=== PATIENT | female | born 1960 | race Caucasian/White ===

== ENCOUNTER 2018-10-23 02:12 | Observation (INO) | payer OTHER, MEDICAID, SELFPAY ==
[2018-10-23] VITALS (9 sets, daily range): BP systolic 101–123; BP diastolic 60–72; PULSE 77–96; RESP 14–18; TEMP 36.9–37.3; O2SAT 92–95; BMI 20.7
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
[2018-10-23 04:27] LABS: Add Manual Diff / Slide Review NO; Basophils Absolute Auto 0 /uL (0-100); Basophils Percent Auto 0.5 % (0-2); Eosinophils Absolute Auto 0 /uL (0-450); Hematocrit 36.2 % (36-46); Hemoglobin 11.9 g/dL (12.0-16.0); Lymphocytes Absolute Auto 2800 /uL (1100-4500); Lymphocytes Percent Auto 28.2 % (25-40); Mean Corpuscular HGB Conc 32.8 % (30-36); Mean Corpuscular Volume 94.5 fL (80-100); Monocytes Absolute Auto 1200 /uL (0-900); Monocytes Percent Auto 11.9 % (3-14); Neutrophils Absolute Auto 5900 /uL (1500-7000); Neutrophils Percent Auto 59.4 % (50-75); Platelet Count 369 X10^3/uL (150-400); Red Blood Cell Count 3.83 X10^6/uL (4.0-5.2); Red Cell Distribution Width 14.1 % (11.6-14.8); White Blood Cell Count 9.9 X10^3/uL (4.5-11.0)
[2018-10-23 04:50] LABS: Blood Urea Nitrogen 15 mg/dL (7-17); Calcium 10.5 mg/dL (8.4-10.2); Carbon Dioxide 28 mmol/L (22-32); Chloride 105 mmol/L (98-107); Estimated Glomerular Filt Rate 56.7 mL/min (>60); Glucose 99 mg/dL (70-100); HEMOLYSIS 28 (0-50); Potassium 3.2 mmol/L (3.4-5.1); Sodium 142 mmol/L (137-145)
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
[2018-10-23 05:08] LABS: Procalcitonin < 0.05 ng/mL (<0.5)
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
[2018-10-23] MEDS: POTASSIUM CHLORIDE 20 MEQ TAB 40 MEQ PO (06:02)
[2018-10-23] MEDS: OXYCODONE/ACETAMINOPHEN 5/325 TABLET 0.5 TAB PO (06:02)
--- NOTE | 2018-10-23 09:06 | PC.NURSE ---
Nasal swabs obtained per orders. Pt tolerated well.
[2018-10-23] MEDS: ALBUTEROL/IPRATROPIUM 3 ML AMPUL INH (09:18)
[2018-10-23] MEDS: NICOTINE 14 PATCH 14 MG TOP (09:23)
[2018-10-23] MEDS: TOPIRAMATE 25 MG TABLET 50 MG PO (09:23)
[2018-10-23] MEDS: ENOXAPARIN 40 MG/0.4 ML SYRINGE SUBCUT (09:24)
[2018-10-23] MEDS: CLOPIDOGREL 75 MG TABLET PO (09:33)
[2018-10-23] MEDS: ASPIRIN EC 81 MG TABLET PO (09:33)
[2018-10-23 10:15] LABS: Adenovirus Not Detected (Not Detect); Bordetella pertussis Not Detected (Not Detect); Chlamydophila pneumoniae Not Detected (Not Detect); Coronavirus 229E Not Detected (Not Detect); Coronavirus HKU1 Not Detected (Not Detect); Coronavirus NL 63 Not Detected (Not Detect); Coronavirus OC43 Not Detected (Not Detect); Human Metapneumovirus Not Detected (Not Detect); Human Rhinovirus/Enterovirus Not Detected (Not Detect); Influenza A Not Detected (Not Detect); Influenza B Not Detected (Not Detect); Mycoplasma pneumoniae Not Detected (Not Detect); Parainfluenza Virus 1 Not Detected (Not Detect); Parainfluenza Virus 2 Not Detected (Not Detect); Parainfluenza Virus 3 Not Detected (Not Detect); Parainfluenza Virus 4 Not Detected (Not Detect); Respiratory Syncytial Virus Not Detected (Not Detect)
--- NOTE | 2018-10-23 10:54 | PC.NURSE ---
Addendum entered by Мария Pichardo R.N. 10/23/18 13:24: RESP - has napped until lunch, ate then ret to l side to doze, occassional dry, non productive cough, declines RT tmt. Original Note: AM NOTE - awakened for breakfast, pt incont urine, brief changed, pericare performed, has defined red rash on r hip area, dry w/o drainage, bs dim w/expir wheezes, RT in tmt this am, ra 92%, asking for sleeping medication I just want to sleep, discussed medications and timing, repositioned for comfort on l side to nap.
--- NOTE | 2018-10-23 11:20 | CM.DANOTE ---
Addendum entered by YAJAIRA Padilla 10/24/18 08:55: ADD: UNIQUE called Mc ([phone]) Marketing Representative of the [facility] that helps provide additional support to pts in the community and coordination of care and made referral and Mc will be working to determine if pt qualifies and will initiate the Program if indicated to help reduce pt's risk of readmit. YAJAIRA Padilla Addendum entered by YAJAIRA Padilla 10/23/18 16:00: ADD: Return call from [facility] stating they can review pt for likely acceptance. SW faxed clinicals, F2F, MD orders and to send d/c summary when available. BF Addendum entered by YAJAIRA Padilla 10/23/18 15:35: ADD: Per MD, pt may not even have UTI but has gotten dose of oral meds that will help in case she is starting to get UTI and is medically stable to d/c home today with HH and signed F2F. UNIQUE called [facility] whom pt had previously, and they confirmed pt was open to service about a month and a half but had multiple cancellations and not answering the door for scheduled appointments and therefore could not accept pt back. SW called [facility] and made referral and due to pt's Coordinated Care she would need to confirm they have an opening to accept pt with Coordinated Care (limited medicaid openings) and will call SW back. BF Original Note: Patient is a 58 year old female who was admitted today 10/23/18 for UTI, poss pneumonia. Pt has [employer] and RODNEY for insurance and her PCP is Dr. Ferreira. EMR was reviewed. Per , waiting for cultures back and pt may not have pneumonia. PT/OT ordered and pending. SW met bedside with pt and explained role and updated whiteboard and pt confirms that she lives alone in an apartment in [place] and is w/c bound at baseline and not Independent with ADL's. Pt seems to be alert and oriented x3. Pt denies DPOA and declined pwk at this time but discussed 2 adult sons, Ramesh lives in [place] and is supportive and her other son lives in [place] but is currently addicted to methamphetamines. SW discussed the importance of DPOA and that it can be someone who lives out of state or a friend. Pt states that since her CVA in June she was at [facility] for a week and then went to [facility] for 3 weeks before returning home with [facility]. Pt states that she is not currently open with [facility] and does not feel HH needed at d/c. Pt does not drive and is not currently set up with Medicaid transport as pt states she cannot leave her dog home alone even for follow up appointments at this time, but SW discussed her supportive neighbor or friend support in the future just as those people are currently helping with her dog while she is admitted to the hospital. Pt states her [facility] CM is Debbie Light who she feels is very helpful and has regular contact with. Pt states she had a CG for 3 years but when she had her CVA and needed Inpt Rehab her CG had to find another client. Pt's recent CG she had for a month but then he had to quit to care for his own young kids. Pt states its been a month since she's not had a caregiver which is why she has not been adequately meeting her hygiene and care needs but that with Debbie Light she has 2 potential caregivers to interview this week to hopefully get hired and set up. Pt states that her friend transported her to [facility] early this morning and pt's w/c is in her hospital room and her friend can provide transport back home at d/c. Pt does not anticipate any further SW needs at this time as she states her primary need is interviewing possible [facility] CG soon. SW called Debbie Light at [facility] and left message regarding pt's admit and coordination of d/c planning and faxed H&P for review. Plan: SW to follow for PT/OT eval and recommendations towards determining if pt will be safe to return home alone with likely new [facility] CG to be on board in the near future. Pt has 2 supportive friends that can provide min assist at d/c. YAJAIRA Padilla Discharge Planning/Care Management CM Discharge Assessment Start: 10/23/18 11:17 Freq: Status: Active Protocol: Document 10/23/18 11:18 BF (Rec: 10/23/18 11:20 BF [id number]) Discharge Planning Assessment Assigned Acid Pump Operator YAJAIRA Liriano DPOA/Assigned Designee Name none Advance Directives? No Advance Directives on File No History Provided By Patient Medical Record Has Patient been admitted in last 30 No days? Prior Living Arrangements Apartment/Condo Household Members none Type of transporation used prior to Relies on Others admit Independent with ADL's No Is patient alert and oriented? Yes Needs Assistance With Bathing Meal Prep Managing Medications Home Chores / Shopping Caregiver for Another No DME Already Rented / Owned Wheelchair FWW / Walker Name of Agency [facility] Contact Phone [phone] Clinicals Faxed Yes Comment Home with caregiver support through [facility] Barriers to Discharge No Discharge Plan Home Transportation Arrangement Friend who provided transport here can transport pt home when discharged. Additional Comment Waiting for PT/OT eval and recommendations Whiteboard Updated in Patient Room with Yes name and ext. # of Acid Pump Operator Review Status In Process Please Provide Date Initial DC 10/23/18 Assessment Was Performed Next Review Type Continued Stay Review
--- NOTE | 2018-10-23 11:41 | PT.IIE ---
Surgical History (Last Updated 10/23/18 @ 05:15 by YSABEL Coello) Hx of section (Inactive) Hx of cholecystectomy (Inactive) Hx of tonsillectomy (Inactive) Medical History (Last Updated 10/23/18 @ 05:10 by YSABEL Coello) COPD (chronic obstructive pulmonary disease) (Acute) Right middle lobe pneumonia (Acute) Atypical Parkinsonism (Chronic) Bipolar 1 disorder (Chronic) Chronic pain syndrome (Chronic) Continuous opioid dependence (Chronic) GERD (gastroesophageal reflux disease) (Chronic) History of CVA (cerebrovascular accident) (Chronic) Hx of malignant neoplasm of stomach (Chronic) Mixed incontinence (Chronic) Physical Therapy Inpatient Evaluation/Re-Eval M1 PT/OT-IP Prior Functional Status Start: 10/23/18 13:09 Freq: NEEDED Status: Active Protocol: Document 10/23/18 11:41 AB (Rec: 10/23/18 13:29 AB [id number]) Medical Review Prior Functional Status Medical History Reviewed Yes Communication able to make needs known Mobility and Gait pt stated that she needs a caregiver to assist her but normally has been managing at home but with difficulty; stated that she ambulated without AD indoors and uses a FWW for outdoor mobility. stated that if there is somebody to assist her, she uses a w/c for mobility. stated that she is not able to maneuver the w/c by herself Social History Household Members none Living Arrangements Apartment/Condo Number of Floors (Floors) One Floor Number of Stairs To Enter/Railing? stated that she lives in a handicapped apartment Home Environment Standard Height Toilet Tub/Shower Built-In Shower Seat Home Equipment Front Wheel Walker Manual Wheelchair Hand Held Shower Grab Bars Near Toilet Grab Bars In Shower Additional Social History Comment pt has given PLOF but has given different answers when asked again. M2 PT-IP Current Condition Start: 10/23/18 13:09 Freq: NEEDED Status: Active Protocol: Document 10/23/18 11:41 AB (Rec: 10/23/18 13:29 AB [id number]) Physical Therapy Current Condition Current Condition Evaluation Date 10/23/18 Treatment Diagnosis PNA; difficulty in walking Onset Date 10/23/18 M3 PT-IP Subjective Start: 10/23/18 13:09 Freq: NEEDED Status: Active Protocol: Document 10/23/18 11:41 AB (Rec: 10/23/18 13:29 AB [id number]) Subjective Physical Therapy Visit Type Type Initial Evaluation Visit Start Time 11:41 Visit Stop Time 12:21 Total Visit Minutes 40 Number of MEDICAL DIR Visits 0 Physical Therapy Visit Comments Patient Comments I have not slept since yesterday; pt initailly refusing PT but participated when encouraged Therapy Pain Assessment Pain When Pain Assessed At Rest Location Back Intensity 8 Scale Used Numeric (1 - 10) Description Chronic Neck Intensity 8 Description Chronic M4 PT-IP Mobility and Gait Start: 10/23/18 13:09 Freq: NEEDED Status: Active Protocol: Document 10/23/18 11:41 AB (Rec: 10/23/18 13:29 AB [id number]) PT-Bed Mobility Assessment Supine to Sit Supine to Sit Standby Assistance Head of Bed Elevated Sit to Supine Sit to Supine Standby Assistance PT-Transfer Assessment Sit to and From Stand Sit to and from Stand Minimal Assistance Equipment Transfer Assistive Device Gait Belt Front Wheeled Walker Orthotic/Prosthetic Devices or Brace: No Transfers Transfer Destination Chair Transfer Technique Stand Step Pivot Transfer Ability Level of Assist Minimal Assistance 1 Person Assistance Use of Upper Extremities Comments Mobility Comments pt initially refusing PT but participated when encouraged but with hesitation. completed sit to stand min A and cues and was able to take a few steps ~ 2 ft using FWW min A and transferred to the chair. pt does not want to stay up on the chair and requested to go back to bed. pt completed stand step pivot transfer without AD min A and cues. assisted pt with bed positioning. call light and table placed within reach. Gait Assessment Gait Gait Assistance Required: Minimum Assistance Distance (Feet) 2 Able to Maintain Weight Bearing Status Yes During Gait Assistive Devices Assistive Device Gait Belt Front Wheeled Walker Gait Deviations General Gait Pattern Antalgic Decreased Stride Length Decreased Feet Clearance Narrow Based Gait Step-to Gait Factors Limiting Gait Function Factors Limiting Gait Function Decreased Activity Tolerance Decreased Strength Difficulty Following Directions Limited Range of Motion Pain Poor Balance Poor Safety Awareness Comments Gait Comments pt presents with shuffling gait. PT-Balance Assessment Sitting Balance and Reactions Static Sitting Balance Ability Good Dynamic Sitting Balance Ability Good Standing Balance and Reactions Static Standing Balance Ability Fair Dynamic Standing Balance Ability Fair Device Used FWW M5 PT-IP Objective Assessments Start: 10/23/18 13:09 Freq: NEEDED Status: Active Protocol: Document 10/23/18 11:41 AB (Rec: 10/23/18 13:29 AB [id number]) Orientation Orientation/Cognition Level of Alertness Alert Orientation Name Place Situation Language Function Ability No Deficits Noted Safety Awareness Decreased Safety Awareness Memory Description Short Term Impaired Netbackup Engineer Impaired Gross Range of Motion Lower Extremity ROM Assessment Within Functional Limits Strength Lower Extremity Strength Assessment Bilaterally Impaired Hip 3+/5 Knee 3+/5 Muscle Tone Muscle Tone WNL Yes M6 PT-IP Treatment Start: 10/23/18 13:09 Freq: NEEDED Status: Active Protocol: Document 10/23/18 11:41 AB (Rec: 10/23/18 13:29 AB [id number]) Physical Therapy Treatment Education Education Provided Safety M7 PT-IP Assessment and Plan Start: 10/23/18 13:09 Freq: NEEDED Status: Active Protocol: Document 10/23/18 11:41 AB (Rec: 10/23/18 13:29 AB [id number]) PT Summary Assessment and Plan Potential Rehabilitation Potential Fair Status of Condition at Evaluation Stable Summary Impairments Pain ROM Strength Balance Coordination Sensation Tone Cognition Bed Mobility Transfers Gait Activity Tolerance Assessment Summary pt requiring min A with mobility has decrease activity tolerance. pt with decrease cognitive level affecting mobility and safety. d/c plan depending on progress but may require SNF rehab. will continue to assess. Goals Bed Mobility Goal Independent Transfer Goal Independent Front Wheeled Walker Gait Goal Independent Front Wheel Walker Gait Distance 150 Days to Meet Goals 5 Frequency of Treatment Frequency Of Treatment Once a Day Treatment Plan Physical Therapy Treatment Plan Bed Mobility Training Transfer Training Gait Training Therapeutic Exercise Balance Retraining Discharge Planning Neuromuscular Re-ed Coordination Retraining Manual Therapy Other Recommendations and Next Treatment ambulation Focus Recommendations To Nursing Amount of Assist Needed 1 Person Assist Discharge Recommendations PT Discharge Recommendations Home with Assistance Home Health SNF Rehab
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
[2018-10-23] MEDS: levoFLOXacin 250 MG TABLET 750 MG PO (17:25)
--- NOTE | 2018-10-23 17:43 | PC.NURSE ---
Evening Shift Note- Patient discharged home.Discharge instructions and education reviewed with patient and sign. IV line removed and bandaid applied. Helped patient with a shower and getting dressed and packing up all personal items. Patient taken by wheelchair to private car by RYNE.
== END 2018-10-23 17:35 | disposition home or self-care (01) ==
LOC: ED 04:04 → AC 04:28
PROVIDERS: Admitting Provider Nurse Practitioner Family; Emergency Provider Emergency Medicine; Visit Provider Nurse Practitioner Family
DX: J18.9 Pneumonia, unspecified organism (principal); N39.0 Urinary tract infection, site not specified; E87.6 Hypokalemia; J44.9 Chronic obstructive pulmonary disease, unspecified; G20 Parkinson's disease; F31.9 Bipolar disorder, unspecified; Z99.3 Dependence on wheelchair
CPT/HCPCS: 36415; 36591; 80048; 83605; 84145; 85025; 87040; 87633; 87797; 93005; 93010; 94640; 94760; 97161; 97530; 99282; 99283; 99406; G0378; J1650; J1956